=== PATIENT | female | born 1970 | race Caucasian/White ===

== ENCOUNTER 2017-04-20 14:09 | Emergency (ER) | payer SELFPAY ==
[~2017-04-20] VITALS: Ht 152.4 cm; Wt 63.5 kg
[2017-04-20] MEDS ORDERED: SODIUM CHLORIDE 0.9% 1000ML 1,000 ML IV SCH (17:30)
[2017-04-20] MEDS ORDERED: ZOLOFT20 MG/1 ML (20:04)
[2017-04-20 20:05] VITALS: BP 132/82
== END 2017-04-20 18:32 | disposition home or self-care (01) ==
LOC: FSED 14:09
DX: R05 Cough (principal); J20.9 Acute bronchitis, unspecified
CPT/HCPCS: 71046; 80053; 81025; 85025; 87400; 93005; 99284